=== PATIENT | female | born 1990 | race Caucasian/White ===

== ENCOUNTER 2018-02-15 10:43 | Emergency (ER) | payer SELFPAY ==
[2018-02-15 11:39] LABS: Absolute Lymphocytes (CBC) 1.8 K/uL (0.7-4.9); Absolute Monocytes 0.5 K/uL (0.1-1.3); Absolute Neutrophil 5.7 K/uL (1.8-8.0); Basophils % 0.4 % (0-1.3); Eosinophils % 1.1 % (0-4.4); Hematocrit 38.3 % (36.0-45.0); Lymphocytes % 21.9 % (15.3-44.8); MCH 32.6 pg (27.0-35.0); MCV 92.9 fL (80-100); MPV 7.4 fL (7.6-11.3); Monocytes % 5.6 % (3.3-12.3); RBC Red Blood Cell Count 4.13 M/uL (3.86-4.86)
[2018-02-15 11:39] LABS: Urine Blood NEGATIVE (NEG); Urine Glucose NEGATIVE (NEG); Urine Protein NEGATIVE (NEG); Urine pH 7.5 (5.0-7.0)
[2018-02-15 11:41] LABS: Urine Bacteria >50 /HPF (<20); Urine Culture Reflex Order REFLEXED; Urine RBC <5 /HPF (NONE SEEN)
--- NOTE | 2018-02-15 12:12 | RAD REPORT ---
EXAM DESCRIPTION: US - Transvaginal OB - 02/15/2018 11:54 am CLINICAL HISTORY: Abdominal pain, COMPARISON: None. TECHNIQUE: Endovaginal sonography performed. FINDINGS: Uterus is 9.6 x 4.8 x 7.2 cm. No myometrial mass identifiable. Within the endometrial cavity there is a normal shaped and gestational sac. Yolk sac is seen. There i s a small echogenic focus most likely the pole. Measurements would indicate a 6 week 5 day gest ational age. However, Doppler evaluation could not identify any cardiac activity. This may simply ref lect a very early gestational age rather than demise. Within the endometrial cavity there is no hematoma or mass. Both ovaries are identified and normal in appearance. No adnexal abnormality. No free fluid or blood in the cul-de-sac. IMPRESSION: Normal shaped Gestational sac is identifiable within the uterus. Small pole identified measuring 6 weeks 5 days in age. No cardiac activity was identifiable. The lack of cardiac activity may reflect early gestational age rather than demise. Follow-up so nography could be performed if serial HCG values indicate ongoing . No adnexal abnormality to suspect ectopic .
[2018-02-15 12:19] LABS: BUN Blood Urea Nitrogen 11 mg/dL (7-18); Bicarbonate 26 mmol/L (21-32); Glucose Level 81 mg/dL (74-106); HCG, Quantitative 59696 mIU/mL (1-3); Potassium 3.8 mmol/L (3.5-5.1); Sodium Level 136 mmol/L (136-145)
--- NOTE | 2018-02-15 12:55 | EDPHYS ---
Physician Documentation [facility] Name: Vangie Messina Age: 27 yrs Sex: Female : 1990 Arrival Date: 02/15/2018 Time: 10:48 Bed 13 Private MD: None, None ED Physician Edgar Xavier HPI: 02/15 11:17 This 27 yrs old Female presents to ER via Ambulatory with complaints of jr8 Unknown wks , Abdominal Cramping. 11:17 The patient presents to the emergency department with abdominal pain, of the lower jr8 abdomen, that started yesterday, described as crampy. course: care: none, Leakage of Fluid: none appreciated, Ultrasound: the patient has not had an ultrasound, Risk/complications: no obvious risks or complications are appreciated. Previous pregnancies: the patient has never been . Associated signs and symptoms: The patient has no apparent associated signs or symptoms. The patient has not experienced similar symptoms in the past. The patient has not recently seen a physician. 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 - Social history:: Smoking status: Patient/guardian denies using tobacco. - Ebola Screening: : Patient negative for fever greater than or equal to 101.5 degrees Fahrenheit, and additional compatible Ebola Virus Disease symptoms Patient denies exposure to infectious person Patient denies travel to an Ebola-affected area in the 21 days before illness onset No symptoms or risks identified at this time. ROS: 11:17 Eyes: Negative for injury, pain, redness, and discharge, ENT: Negative for injury, jr8 pain, and discharge, Neck: Negative for injury, pain, and swelling, Cardiovascular: Negative for chest pain, palpitations, and edema, Respiratory: Negative for shortness of breath, cough, wheezing, and pleuritic chest pain, Back: Negative for injury and pain, MS/Extremity: Negative for injury and deformity, Skin: Negative for injury, rash, and discoloration, Neuro: Negative for headache, weakness, numbness, tingling, and seizure. 11:17 Abdomen/GI: Positive for abdominal cramps, Negative for vomiting, diarrhea, hematemesis, black/tarry stool, rectal pain, rectal bleeding, bowel incontinence, flatulence. Exam: 11:17 Eyes: Pupils equal round and reactive to light, extra-ocular motions intact. Lids and jr8 lashes normal. Conjunctiva and sclera are non-icteric and not injected. Cornea within normal limits. Periorbital areas with no swelling, redness, or edema. ENT: Nares patent. No nasal discharge, no septal abnormalities noted. Tympanic membranes are normal and external auditory canals are clear. Oropharynx with no redness, swelling, or masses, exudates, or evidence of obstruction, uvula midline. Mucous membranes moist. Neck: Trachea midline, no thyromegaly or masses palpated, and no cervical lymphadenopathy. Supple, full range of motion without nuchal rigidity, or vertebral point tenderness. No Meningismus. Cardiovascular: Regular rate and rhythm with a normal S1 and S2. No gallops, murmurs, or rubs. Normal PMI, no JVD. No pulse deficits. Respiratory: Lungs have equal breath sounds bilaterally, clear to auscultation and percussion. No rales, rhonchi or wheezes noted. No increased work of breathing, no retractions or nasal flaring. Abdomen/GI: Soft, non-tender, with normal bowel sounds. No distension or tympany. No guarding or rebound. No evidence of tenderness throughout. Back: No spinal tenderness. No costovertebral tenderness. Full range of motion. Skin: Warm, dry with normal turgor. Normal color with no rashes, no lesions, and no evidence of cellulitis. MS/ Extremity: Pulses equal, no cyanosis. Neurovascular intact. Full, normal range of motion. Neuro: Awake and alert, GCS 15, oriented to person, place, time, and situation. Cranial nerves II-XII grossly intact. Motor strength 5/5 in all extremities. Sensory grossly intact. Cerebellar exam normal. Normal gait. Vital Signs: 11:01 BP 122 / 74; Pulse 69; Resp 20; Temp 98.0; Pulse Ox 100% on R/A; Weight 127.01 kg; aj Height 5 ft. 3 in. (160.02 cm); 13:02 BP 105 / 77; Pulse 76; Resp 17; Pulse Ox 99% on R/A; Pain 0/10; tw2 11:01 Body Mass Index 49.60 (127.01 kg, 160.02 cm) aj MDM: 11:05 Patient medically screened. [facility] 12:53 Data reviewed: vital signs, nurses notes, lab test result(s), radiologic studies, [facility] ultrasound, and as a result, I will discharge patient. Data interpreted: Pulse oximetry: on room air is 100 %. Interpretation: normal. Counseling: I had a detailed discussion with the patient and/or guardian regarding: the historical points, exam findings, and any diagnostic results supporting the discharge/admit diagnosis, lab results, radiology results, the need for outpatient follow up, an OB/Gyne specialist, to return to the emergency department if symptoms worsen or persist or if there are any questions or concerns that arise at home. 02/15 11:13 Order name: Urine Microscopic Only; Complete Time: 12: 02/15 11:15 Order name: Quantitative Hcg; Complete Time: 12: [facility] 02/15 11:15 Order name: Basic Metabolic Panel; Complete Time: 12:52 [facility] 02/15 11:15 Order name: CBC with Diff; Complete Time: 12:52 [facility] 02/15 11:15 Order name: Urine Dipstick--Ancillary (enter results); Complete Time: 12:52 02/15 11:15 Order name: Urine --Ancillary (enter results); Complete Time: 12:52 02/15 11:15 Order name: Urine Test (obtain specimen); Complete Time: : [facility] 02/15 11:15 Order name: IV Saline Lock; Complete Time: [facility] 02/15 11:15 Order name: Labs collected and sent; Complete Time: [facility] 02/15 11:15 Order name: NPO; Complete Time: [facility] 02/15 11:15 Order name: Urine Dipstick-Ancillary (obtain specimen); Complete Time: :18 [facility] 02/15 11:15 Order name: US Transvaginal Ob; Complete Time: 12:52 jr8 02/15 11:42 Order name: Urine Culture EDMS Administered Medications: No medications were administered Disposition: 17:01 Co-signature as Attending Physician, Edgar Xavier MD I agree with the assessment and kdr plan of care. Disposition: 02/15/18 12:54 Discharged to Home. Impression: Urinary tract infection, site not specified, Abdominal and pelvic pain. - Condition is Stable. - Discharge Instructions: First Trimester of , and Urinary Tract Infection. - Prescriptions for Macrobid 100 mg Oral Capsule - take 1 capsule by ORAL route every 12 hours for 7 days; 14 capsule. - Medication Reconciliation Form, Thank You Letter, Antibiotic Education, Prescription Opioid Use, Work release form, Family Work Release form. - Follow up: Private Physician; When: 2 - 3 days; Reason: Recheck today's complaints, Continuance of care, Re-evaluation by your physician. - Problem is new. - Symptoms have improved. - Notes: Another Ultrasound needs to be preformed in one week to determine early gestation vs. demise Signatures: Dispatcher [employer] EDMS Mariluz Mesa, RN RN Edgar Jack MD MD [facility] Jose Keys PA PA jr8 Margarita Chatman RN RN tw2 Corrections: (The following items were deleted from the chart) 13:03 12:54 02/15/2018 12:54 Discharged to Home. Impression: Urinary tract infection, site tw2 not specified; Abdominal and pelvic pain. Condition is Stable. Forms are Work release form, Family Work Release, Medication Reconciliation Form, Thank You Letter, Antibiotic Education, Prescription Opioid Use. Follow up: Private Physician; When: 2 - 3 days; Reason: Recheck today's complaints, Continuance of care, Re-evaluation by your physician. Problem is new. Symptoms have improved. jr8
--- NOTE | 2018-02-15 12:55 | ER ---
Nurse's Notes [facility] Name: Vangie Messina Age: 27 yrs Sex: Female : 1990 Arrival Date: 02/15/2018 Time: 10:48 Bed 13 Private MD: None, None Diagnosis: Urinary tract infection, site not specified;Abdominal and pelvic pain Presentation: 02/15 11:00 Presenting complaint: Patient states: "I recently found out I am and I am aj having some mild cramps for 2 days." Denies vaginal bleeding or discharge. Transition of care: patient was not received from another setting of care. Onset of symptoms was February 13, 2018. Risk Assessment: Do you want to hurt yourself or someone else? Patient reports no desire to harm self or others. Initial Sepsis Screen: Does the patient meet any 2 criteria? No. Patient's initial sepsis screen is negative. Does the patient have a suspected source of infection? No. Patient's initial sepsis screen is negative. Care prior to arrival: None. 11:00 Method Of Arrival: Ambulatory aj 11:00 Acuity: ESTHER 3 aj Triage Assessment: 11:01 General: Appears in no apparent distress. comfortable, obese, Behavior is calm, aj cooperative, appropriate for age. Pain: Denies pain. Neuro: Level of Consciousness is awake, alert, obeys commands, Oriented to person, place, time, situation, Appropriate for age. Respiratory: Airway is patent Respiratory effort is even, unlabored, Respiratory pattern is regular, symmetrical. GI: Abdomen is obese. : Reports cramping. Derm: Skin is intact, is healthy with good turgor, Skin is pink, warm \\T\\ dry. normal. 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 - Social history:: Smoking status: Patient/guardian denies using tobacco. - Ebola Screening: : Patient negative for fever greater than or equal to 101.5 degrees Fahrenheit, and additional compatible Ebola Virus Disease symptoms Patient denies exposure to infectious person Patient denies travel to an Ebola-affected area in the 21 days before illness onset No symptoms or risks identified at this time. Screenin:17 Abuse screen: Denies threats or abuse. Nutritional screening: No deficits noted. tw2 Tuberculosis screening: No symptoms or risk factors identified. Fall Risk None identified. Assessment: 11:15 General: Appears in no apparent distress. obese, well groomed, Behavior is calm, tw2 cooperative, appropriate for age. Pain: Complains of pain in abdomen. Neuro: Level of Consciousness is awake, alert, obeys commands, Oriented to person, place, time, situation. Cardiovascular: Heart tones S1 S2. Cardiovascular: Patient's skin is warm and dry. Respiratory: Airway is patent Respiratory effort is even, unlabored, Respiratory pattern is regular, symmetrical, Breath sounds are clear bilaterally. GI: Abdomen is round non-distended, obese, Bowel sounds present X 4 quads. Abd is soft X 4 quads Reports cramping. : Reports vaginal bleeding that is. EENT: No signs and/or symptoms were reported regarding the EENT system. Derm: No signs and/or symptoms reported regarding the dermatologic system. Musculoskeletal: Range of motion: intact in all extremities. 13:02 Reassessment: Patient appears in no apparent distress at this time. No changes from tw2 previously documented assessment. Patient and/or family updated on plan of care and expected duration. Pain level reassessed. Patient is alert, oriented x 3, equal unlabored respirations, skin warm/dry/pink. Vital Signs: 11:01 BP 122 / 74; Pulse 69; Resp 20; Temp 98.0; Pulse Ox 100% on R/A; Weight 127.01 kg; aj Height 5 ft. 3 in. (160.02 cm); 13:02 BP 105 / 77; Pulse 76; Resp 17; Pulse Ox 99% on R/A; Pain 0/10; tw2 11:01 Body Mass Index 49.60 (127.01 kg, 160.02 cm) ED Course: 10:48 Patient arrived in ED. mr 10:49 None, None is Private Physician. mr 11:01 Triage completed. aj 11:01 Arm band placed on left wrist. Patient placed in an exam room. aj 11:05 Jose Keys PA is PHCP. jr8 11:05 Edgar Xavier MD is Attending Physician. jr8 11:05 Margarita Chatman RN is Primary Nurse. tw2 11:10 Bed in low position. Call light in reach. Adult w/ patient. Pulse ox on. NIBP on. tw2 11:18 Urine Microscopic Only Sent. tw2 11:20 Patient taken to ultrasound. hr 11:28 Inserted saline lock: 22 gauge in right antecubital area, using aseptic technique. tw2 Blood collected. Missed attempt(s): 22 gauge in right antecubital area. Bleeding controlled, band aid applied, catheter tip intact. 11:54 US Transvaginal Ob In Process Unspecified. EDMS 12:10 Ultrasound completed. hr 13:02 No provider procedures requiring assistance completed. IV discontinued, intact, tw2 bleeding controlled, No redness/swelling at site. Pressure dressing applied. Administered Medications: No medications were administered Outcome: 12:54 Discharge ordered by . jr8 13:03 Discharged to home ambulatory. tw2 13:03 Condition: stable 13:03 Discharge instructions given to patient, Instructed on discharge instructions, follow up and referral plans. medication usage, Demonstrated understanding of instructions, follow-up care, medications, Prescriptions given X 1. 13:03 Patient left the ED. tw2 Addendum: 02/19/2018 07:48 Addendum: Culture Results: Positive urine culture. No further action required. Bacteria i w sensitive to prescribed antibiotic. Signatures: Dispatcher [employer] EDMS Mariluz Mesa, RN ROBBIN quigley Janna Phillips Haley hr Leah Quiñones, ROBBIN SIEGEL Jose Keys PA PA jr8 Margarita Chatman RN RN tw2
== END 2018-02-15 13:03 | disposition home or self-care (01) ==
LOC: ER 10:43
DX: O23.41 Unspecified infection of urinary tract in pregnancy, first trimester (principal); Z3A.11 11 weeks gestation of pregnancy; R10.2 Pelvic and perineal pain
CPT/HCPCS: 36415; 76817; 80048; 81003; 81015; 81025; 84702; 85025; 87077; 87086; 87088; 87186; 99284

== ENCOUNTER 2018-03-06 21:58 | Emergency (ER) | payer SELFPAY ==
[2018-03-07 01:19] LABS: Urine Blood 3+ (NEG); Urine Glucose NEGATIVE (NEG); Urine Protein 1+ (NEG); Urine Specific Gravity 1.025 (1.005-1.030)
[2018-03-07 01:25] LABS: Absolute Lymphocytes (CBC) 2.8 K/uL (0.7-4.9); Absolute Monocytes 0.8 K/uL (0.1-1.3); Absolute Neutrophil 7.5 K/uL (1.8-8.0); Basophils % 0.7 % (0-1.3); Eosinophils % 1.6 % (0-4.4); Lymphocytes % 24.6 % (15.3-44.8); MPV 7.8 fL (7.6-11.3); Monocytes % 7.1 % (3.3-12.3); RBC Red Blood Cell Count 3.61 M/uL (3.86-4.86)
[2018-03-07 01:52] LABS: Blood Morphology Comment NOT SEEN (NOT SEEN); Platelet Estimate INCR; Urine White Blood Cell Casts OK
[2018-03-07 01:57] LABS: BUN Blood Urea Nitrogen 12 mg/dL (7-18); Bicarbonate 23 mmol/L (21-32); Glucose Level 76 mg/dL (74-106); HCG, Quantitative 10841 mIU/mL (1-3); Potassium 3.3 mmol/L (3.5-5.1); Sodium Level 139 mmol/L (136-145)
--- NOTE | 2018-03-07 02:09 | ER ---
Nurse's Notes [facility] Name: Vangie Messina Age: 27 yrs Sex: Female : 1990 Arrival Date: 03/06/2018 Time: 22:01 Bed 13 Private MD: Diagnosis: Spontaneous Presentation: 03/06 22:09 Presenting complaint: Patient states: back pain and vaginal bleeding since this aa1 afternoon. Reports she is approx 9 week and has confirmed IUP at this facility 3 weeks ago. Transition of care: patient was not received from another setting of care. Onset of symptoms was March 06, 2018. Risk Assessment: Do you want to hurt yourself or someone else? Patient reports no desire to harm self or others. Initial Sepsis Screen: Does the patient meet any 2 criteria? No. Patient's initial sepsis screen is negative. Does the patient have a suspected source of infection? No. Patient's initial sepsis screen is negative. Care prior to arrival: None. 22:09 Method Of Arrival: Ambulatory aa1 22:09 Acuity: ESTHER 3 aa1 Triage Assessment: 22:10 General: Appears in no apparent distress. comfortable, Behavior is cooperative, aa1 appropriate for age, anxious. 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 - Social history:: Smoking status: Patient/guardian denies using tobacco. - Ebola Screening: : No symptoms or risks identified at this time. Screenin:50 Abuse screen: Denies threats or abuse. Nutritional screening: No deficits noted. jb4 Tuberculosis screening: No symptoms or risk factors identified. Fall Risk None identified. Assessment: 22:40 Reassessment: Pt is in ultrasound. jb4 22:50 Obstetrical Assessment: General assessment: awake and alert, skin warm and dry, jb4 respirations even and unlabored. General: Appears in no apparent distress. distressed, comfortable, Behavior is calm, cooperative, appropriate for age. Pain: Complains of pain in low back area. Neuro: Level of Consciousness is awake, alert, obeys commands, Oriented to person, place, time, situation. Cardiovascular: Patient's skin is warm and dry. Respiratory: Airway is patent Respiratory effort is even, unlabored, Respiratory pattern is regular, symmetrical. GI: No signs and/or symptoms were reported involving the gastrointestinal system. : Reports discharge, from vagina that is bloody, vaginal bleeding that is bright red. EENT: No signs and/or symptoms were reported regarding the EENT system. Derm: Skin is intact, Skin is pink, warm \T\ dry. Musculoskeletal: Circulation, motion, and sensation intact. 03/07 00:19 Reassessment: Patient appears in no apparent distress at this time. Patient and/or jb4 family updated on plan of care and expected duration. Pain level reassessed. Patient is alert, oriented x 3, equal unlabored respirations, skin warm/dry/pink. 01:00 Reassessment: Patient appears in no apparent distress at this time. Patient and/or jb4 family updated on plan of care and expected duration. Pain level reassessed. Patient is alert, oriented x 3, equal unlabored respirations, skin warm/dry/pink. 02:00 Reassessment: Patient appears in no apparent distress at this time. Patient and/or jb4 family updated on plan of care and expected duration. Pain level reassessed. Patient is alert, oriented x 3, equal unlabored respirations, skin warm/dry/pink. Vital Signs: 03/06 22:10 BP 148 / 84; Pulse 72; Resp 18; Temp 99.2(O); Pulse Ox 100% on R/A; Weight 117.93 kg; aa1 Height 5 ft. 4 in. (162.56 cm); Pain 6/10; 03/07 00:00 BP 120 / 67; Pulse 63; Resp 18; Pulse Ox 100% on R/A; jb4 01:00 BP 115 / 63; Pulse 72; Resp 18; Pulse Ox 100% ; jb4 02:00 BP 129 / 73; Pulse 58; Resp 16; Pulse Ox 100% on R/A; jb4 03/06 22:10 Body Mass Index 44.63 (117.93 kg, 162.56 cm) aa1 ED Course: 03/06 22:01 Patient arrived in ED. ds1 22:03 [facility]in[facility]C [facility] snw 22:03 Zander Florence MD is Attending Physician. snw 22:10 Triage completed. aa1 22:10 Arm band placed on right wrist. aa1 22:30 Patient has correct armband on for positive identification. Bed in low position. Call jb4 light in reach. Side rails up X 1. Pulse ox on. NIBP on. 22:35 Sunny Strickland, RN is Primary Nurse. jb4 22:44 US Transvaginal Ob In Process Unspecified. EDMS 22:53 Ultrasound completed. Patient tolerated well. Patient moved back from ultrasound. cy 23:10 Missed attempt(s): 20 gauge in left forearm. Bleeding controlled, band aid applied, mb4 catheter tip intact. 12 02:27 No provider procedures requiring assistance completed. Patient did not have IV access jb4 during this emergency room visit. Administered Medications: No medications were administered Outcome: 02:09 Discharge ordered by . snw 02:27 Discharged to home ambulatory. jb4 02:27 Condition: stable 02:27 Discharge instructions given to patient, significant other, Instructed on discharge instructions, follow up and referral plans. medication usage, Demonstrated understanding of instructions, follow-up care, medications, Prescriptions given X 1. 02:28 Patient left the ED. jb4 Signatures: Dispatcher [employer] EDMS Imelda Gonzalez, RN RN aa1 Ginan Hernandez FNP-C [employer] Leighann Sotomayor ds1 Sunny Strickland, RN RN jb4 Kayode Montanez Mackenzie mb4
--- NOTE | 2018-03-07 02:09 | EDPHYS ---
Physician Documentation [facility] Name: Vangie Messina Age: 27 yrs Sex: Female : 1990 Arrival Date: 03/06/2018 Time: 22:01 Bed 13 Private MD: ED Physician Zander Florence HPI: 03/06 23:04 This 27 yrs old Female presents to ER via Ambulatory with complaints of snw Vaginal Bleeding, + Preg <12wks, Back Pain. 23:04 The patient presents with vaginal bleeding that is light. Onset: The symptoms/episode snw began/occurred suddenly, today, and became persistent. Modifying factors: The symptoms are alleviated by nothing. Associated signs and symptoms: Pertinent positives: vaginal bleeding, low back pain. Severity of symptoms: At their worst the symptoms were mild. The patient has experienced a previous episode. The patient has been recently seen at the [facility] Emergency Department, a couple of weeks ago. blood on US probe. 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 - Social history:: Smoking status: Patient/guardian denies using tobacco. - Ebola Screening: : No symptoms or risks identified at this time. ROS: 23:03 Constitutional: Negative for fever, chills, and weight loss, Eyes: Negative for injury, snw pain, redness, and discharge, ENT: Negative for injury, pain, and discharge, Neck: Negative for injury, pain, and swelling, Cardiovascular: Negative for chest pain, palpitations, and edema, Respiratory: Negative for shortness of breath, cough, wheezing, and pleuritic chest pain, Abdomen/GI: Negative for abdominal pain, nausea, vomiting, diarrhea, and constipation, Back: Negative for injury, low constant back pain x 3 days : Negative for injury, discharge, and swelling, + vaginal bleeding today (light in color) MS/Extremity: Negative for injury and deformity, Skin: Negative for injury, rash, and discoloration, Neuro: Negative for headache, weakness, numbness, tingling, and seizure, Psych: Negative for depression, anxiety, suicide ideation, homicidal ideation, and hallucinations. Exam: 23:03 Constitutional: This is a well developed, well nourished patient who is awake, alert, snw and in no acute distress. Head/Face: Normocephalic, atraumatic. Eyes: Pupils equal round and reactive to light, extra-ocular motions intact. Lids and lashes normal. Conjunctiva and sclera are non-icteric and not injected. Cornea within normal limits. Periorbital areas with no swelling, redness, or edema. ENT: Nares patent. No nasal discharge, no septal abnormalities noted. Tympanic membranes are normal and external auditory canals are clear. Oropharynx with no redness, swelling, or masses, exudates, or evidence of obstruction, uvula midline. Mucous membranes moist. Neck: Trachea midline, no thyromegaly or masses palpated, and no cervical lymphadenopathy. Supple, full range of motion without nuchal rigidity, or vertebral point tenderness. No Meningismus. Chest/axilla: Normal chest wall appearance and motion. Nontender with no deformity. No lesions are appreciated. Cardiovascular: Regular rate and rhythm with a normal S1 and S2. No gallops, murmurs, or rubs. Normal PMI, no JVD. No pulse deficits. Respiratory: Lungs have equal breath sounds bilaterally, clear to auscultation and percussion. No rales, rhonchi or wheezes noted. No increased work of breathing, no retractions or nasal flaring. Abdomen/GI: Soft, non-tender, with normal bowel sounds. No distension or tympany. No guarding or rebound. No evidence of tenderness throughout. Back: No spinal tenderness. No costovertebral tenderness. Full range of motion. Skin: Warm, dry with normal turgor. Normal color with no rashes, no lesions, and no evidence of cellulitis. MS/ Extremity: Pulses equal, no cyanosis. Neurovascular intact. Full, normal range of motion. Neuro: Awake and alert, GCS 15, oriented to person, place, time, and situation. Cranial nerves II-XII grossly intact. Motor strength 5/5 in all extremities. Sensory grossly intact. Cerebellar exam normal. Normal gait. Vital Signs: 22:10 BP 148 / 84; Pulse 72; Resp 18; Temp 99.2(O); Pulse Ox 100% on R/A; Weight 117.93 kg; aa1 Height 5 ft. 4 in. (162.56 cm); Pain 08/27; 03/07 00:00 BP 120 / 67; Pulse 63; Resp 18; Pulse Ox 100% on R/A; jb4 01:00 BP 115 / 63; Pulse 72; Resp 18; Pulse Ox 100% ; jb4 02:00 BP 129 / 73; Pulse 58; Resp 16; Pulse Ox 100% on R/A; jb4 03/06 22:10 Body Mass Index 44.63 (117.93 kg, 162.56 cm) aa1 MDM: 03/06 22:46 Patient medically screened. snw 03/07 02:10 Data reviewed: vital signs, nurses notes. Data interpreted: Pulse oximetry: on room air snw is 100 %. Interpretation: normal. Counseling: I had a detailed discussion with the patient and/or guardian regarding: the historical points, exam findings, and any diagnostic results supporting the discharge/admit diagnosis, lab results, radiology results, the need for outpatient follow up, to return to the emergency department if symptoms worsen or persist or if there are any questions or concerns that arise at home. Special discussion: Based on the history and exam findings, there is no indication for further emergent testing or inpatient evaluation. I discussed with the patient/guardian the need to see the OB Gyne specialist for further evaluation of the symptoms. 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 Return to ED for increased pain, significant vaginal bleeding, or other problems or concerns. 03/06 22:17 Order name: Quantitative Hcg; Complete Time: 01:59 snw 03/06 22:17 Order name: Abo/rh Typing; Complete Time: 02:08 snw 03/06 22:17 Order name: Basic Metabolic Panel; Complete Time: 01:59 snw 03/06 22:17 Order name: CBC with Diff; Complete Time: 01:54 snw 03/06 23:28 Order name: Urine Dipstick--Ancillary (enter results); Complete Time: 01:27 mt 03/06 23:28 Order name: Urine --Ancillary (enter results); Complete Time: 01:27 mt 03/06 22:17 Order name: Urine Test (obtain specimen); Complete Time: 00:12 snw 03/06 22:17 Order name: Labs collected and sent; Complete Time: 01:01 snw 03/06 22:17 Order name: NPO; Complete Time: 00:12 snw 03/06 22:17 Order name: Urine Dipstick-Ancillary (obtain specimen); Complete Time: 00:12 snw 03/06 22:17 Order name: US Transvaginal Ob snw 03/07 01:32 Order name: CBC Smear Scan; Complete Time: 01:54 EDMS 03/07 02:14 Order name: ABO/RH no charge; Complete Time: 02:15 EDMS Administered Medications: No medications were administered Disposition: 03:01 Co-signature as Attending Physician, Zander Florence MD. rn Disposition: 03/07/18 02:09 Discharged to Home. Impression: Spontaneous . - Condition is Stable. - Discharge Instructions: Miscarriage. - Prescriptions for Diclofenac Sodium 75 mg Oral Tablet Sustained Release - take 1 tablet by ORAL route 2 times per day; 30 tablet. - Medication Reconciliation Form, Thank You Letter, Antibiotic Education, Prescription Opioid Use form. - Follow up: Private Physician; When: 1 - 2 days; Reason: Recheck today's complaints, Continuance of care, Re-evaluation by your physician. Follow up: Emergency Department; When: As needed; Reason: Worsening of condition. - Notes: Your blood type is A+ Signatures: Dispatcher [employer] EDMS Imelda Gonzalez RN RN aa1 Ginna Hernandez, OIL BURNER TECHNICIAN-C OIL BURNER TECHNICIAN-Csnw Zander Florence MD MD rn Bryson, James, RN RN jb4 Corrections: (The following items were deleted from the chart) 00:12 03/06 22:17 IV Saline Lock ordered. snw jb4 03/07 02:28 02:09 03/07/2018 02:09 Discharged to Home. Impression: Spontaneous . Condition jb4 is Stable. Forms are Medication Reconciliation Form, Thank You Letter, Antibiotic Education, Prescription Opioid Use. Follow up: Private Physician; When: 1 - 2 days; Reason: Recheck today's complaints, Continuance of care, Re-evaluation by your physician. Follow up: Emergency Department; When: As needed; Reason: Worsening of condition. snw
--- NOTE | 2018-03-07 08:33 | RAD REPORT ---
EXAM DESCRIPTION: US - Transvaginal OB - 03/06/2018 10:42 pm CLINICAL HISTORY: , bleeding Preliminary findings provided at the time of the study. COMPARISON: None. FINDINGS: Cervical canal is at least 4.5 cm in length with a closed internal os. An irregularly-shap ed gestational sac is identified within the endometrial cavity. Size would correspond to an 8 week 2 day age. There is no definitive yolk sac or pole identifiable. No large hematoma or mass identi fied in the endometrial cavity. Uterus is 8.7 x 6.1 x 7.1 cm. No myometrial mass. No blood or fluid in the cul-de-sac. Both ovaries a re identifiable. No abnormal blood flow pattern of the stroma. No adnexal mass to suspect ectopic pre gnancy. IMPRESSION: An 8 week 2 day sized gestational sac is present, somewhat irregular in shape, without f etal pole or definitive yolk sac seen. No ovarian or adnexal abnormality. Cervical canal is long and closed.
== END 2018-03-07 02:28 | disposition home or self-care (01) ==
LOC: ER 21:58
DX: O03.9 Complete or unspecified spontaneous abortion without complication (principal)
CPT/HCPCS: 36415; 76817; 80048; 81003; 81025; 84702; 85025; 86900; 86901; 99284